=== PATIENT | male | born 1940 | race Caucasian/White ===

== ENCOUNTER → 2016-11-02 | Outpatient (CLI) | payer MEDICARE, BC ==
[~2016-11-02] MED LIST: ASPI81TA85 PO; FISH1000 PO; HYDR12.55 PO; JANU100T PO; LISI-538 PO; ROSU10TA PO; VITA200016 PO
--- NOTE | 2016-11-02 11:26 | REP ---
Clinical: Annual health physical . Comparison: 08/16/2015 . Technique: PA and lateral. Findings: The mediastinum and cardiac silhouette are normal. The lung rogers are clear and without acute consolidation, effusion, or pneumothorax. The skeletal structures are intact and normal. Impression: 1. No acute cardiopulmonary process. Signed by Carlos Dave MD 11/02/2016 11:18 A
[2016-11-02 11:27] LABS: MEAN CORPUSCULAR HEMOGLOBIN 29.8 pg (27.0-33.0); MEAN CORPUSCULAR HGB CONC 34.4 g/dl (32.0-36.5); MEAN CORPUSCULAR VOLUME 86.8 fl (80.0-96.0); RED CELL DISTRIBUTION WIDTH 12.9 % (11.5-14.5)
[2016-11-02 11:51] LABS: ALBUMIN 3.9 GM/DL (3.2-5.2); ALBUMIN/GLOBULIN RATIO 1.18 (1.00-1.93); ALKALINE PHOSPHATASE 49 U/L (45-117); ALT/SGPT 26 U/L (12-78); ANION GAP 10 MEQ/L (8-16); AST/SGOT 22 U/L (15-37); BILIRUBIN,TOTAL 1.3 MG/DL (0.2-1.0); BLOOD UREA NITROGEN 15 MG/DL (7-18); CALCIUM LEVEL 8.7 MG/DL (8.8-10.2); CARBON DIOXIDE LEVEL 29 MEQ/L (21-32); CHLORIDE LEVEL 100 MEQ/L (98-107); CHOLESTEROL LEVEL 161 MG/DL (<200); CREATININE FOR GFR 1.05 MG/DL (0.70-1.30); GLOMERULAR FILTRATION RATE > 60.0 (>42); GLUCOSE, FASTING 131 MG/DL (83-110); POTASSIUM SERUM 4.2 MEQ/L (3.5-5.1); SODIUM LEVEL 139 MEQ/L (136-145); TOTAL PROTEIN 7.2 GM/DL (6.4-8.2); TRIGLYCERIDES LEVEL 91 MG/DL (<150)
--- NOTE | 2016-11-02 16:43 | ECGEPIP ---
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 Electronically Signed On 11-02-2016 16:43:13 EST by Mikie Kumar
== END ==
LOC: M LAB 10:45
PROVIDERS: ATTEND Family Medicine
DX: I10 Essential (primary) hypertension (principal); I44.0 Atrioventricular block, first degree; I45.9 Conduction disorder, unspecified; Z79.899 Other long term (current) drug therapy; N39.0 Urinary tract infection, site not specified

== ENCOUNTER → 2016-11-20 | Outpatient (CLI) | payer MEDICARE, BC ==
[~2016-11-20] MED LIST changes: +ISOVUE-370 76% 100ML VIAL (Q9967) As Ordered ONE
--- NOTE | 2016-11-20 13:30 | REP ---
CT UROGRAM: CT ABDOMEN/PELVIS WITHOUT AND WITH IV CONTRAST HISTORY: Hematuria with bladder mass. Question bladder carcinoma. No comparison studies. CT CONTRAST DOSE: 100 mL of Isovue-[address] FINDINGS: Preliminary digital manager technical support radiograph of the abdomen shows an unremarkable bowel gas pattern. The lung bases are clear. There is a sharply circumscribed low-density lesion in the left lobe of the liver, consist with cyst. This measures 1.8 cm in greatest diameter. No other focal liver lesion is appreciated. Spleen is unremarkable. No adrenal lesion is seen on either side. There is a small sliding-type hiatal hernia. The gallbladder and pancreas show no abnormality. There is a large intrarenal calculus occupying the lower pole collecting system of the left kidney. This measures 1.5 cm in greatest transverse dimension. Appears to be 2.5 cm in craniocaudal span. No hydronephrosis is seen. The kidneys enhance symmetrically and are otherwise morphologically intact. Renal artery vascular calcification and abdominal aortic vascular calcification is seen. A normal appendix is noted. There are dystrophic calcifications in the prostate gland. There is some calcific material in the dependent portion of the bladder lumen to the right of midline, consistent with small gravel-like bladder calculi. No bladder mass lesion is seen. Seminal vesicles are unremarkable. There is diverticulosis affecting the sigmoid colon without CT evidence of diverticulitis. No abdominal wall defect is seen. No bony destructive lesion is appreciated. IMPRESSION: 1. Staghorn calculus lower pole left kidney 2.5 cm in greatest diameter. No hydronephrosis. 2. Prostate enlargement with dystrophic prostate calcifications. There is mild thickening diffusely in the bladder wall, and there are gravel-like calculi in the urinary bladder. 3. Vascular calcification. 4. Small hiatal hernia. 5. Left colonic diverticulosis. 6. A 1.8 cm cyst in the left lobe of the liver. Signed by Horacio Peter MD 11/20/2016 03:17 P
== END ==
LOC: M RAD 11:53
PROVIDERS: ATTEND Family Medicine
DX: R31.9 Hematuria, unspecified (principal); N32.89 Other specified disorders of bladder; K44.9 Diaphragmatic hernia without obstruction or gangrene; K57.30 Diverticulosis of large intestine without perforation or abscess without bleeding; K76.89 Other specified diseases of liver; N20.0 Calculus of kidney; N40.0 Benign prostatic hyperplasia without lower urinary tract symptoms
CPT/HCPCS: 74178; Q9967

== ENCOUNTER → 2016-12-12 | Outpatient (REF) | payer MEDICARE, BC ==
[~2016-12-12] MED LIST changes: +CRES10TA32 PO; -ISOVUE-370 76% 100ML VIAL (Q9967) As Ordered ONE; -ROSU10TA PO
[2016-12-12 19:47] LABS: CALCIUM OXALATE CRYSTALS SMALL
== END ==
LOC: M SMT 17:27
PROVIDERS: ATTEND Nurse Practitioner Family
DX: R31.9 Hematuria, unspecified (principal)
CPT/HCPCS: 81001; 87086; 88108; G0463

== ENCOUNTER → 2017-01-16 | Outpatient (CLI) | payer MEDICARE, BC ==
[~2017-01-16] MED LIST changes: +FLOM5CAP PO; +VITA-130 PO
[2017-01-16 09:50] LABS: MEAN CORPUSCULAR HEMOGLOBIN 31.1 pg (27.0-33.0); MEAN CORPUSCULAR HGB CONC 34.9 g/dl (32.0-36.5); MEAN CORPUSCULAR VOLUME 89.2 fl (80.0-96.0); RED CELL DISTRIBUTION WIDTH 13.5 % (11.5-14.5); WHITE BLOOD COUNT 6.6 K/mm3 (4.0-10.0)
[2017-01-16 09:54] LABS: INR 0.95
[2017-01-16 10:20] LABS: ALBUMIN 3.7 GM/DL (3.2-5.2); ALBUMIN/GLOBULIN RATIO 1.06 (1.00-1.93); ALKALINE PHOSPHATASE 50 U/L (45-117); ALT/SGPT 31 U/L (12-78); ANION GAP 7 MEQ/L (8-16); AST/SGOT 20 U/L (15-37); BILIRUBIN,TOTAL 1.2 MG/DL (0.2-1.0); BLOOD UREA NITROGEN 16 MG/DL (7-18); CALCIUM LEVEL 8.5 MG/DL (8.8-10.2); CARBON DIOXIDE LEVEL 29 MEQ/L (21-32); CHLORIDE LEVEL 101 MEQ/L (98-107); CHOLESTEROL LEVEL 128 MG/DL (<200); CREATININE FOR GFR 1.15 MG/DL (0.70-1.30); GLOMERULAR FILTRATION RATE > 60.0 (>42); GLUCOSE, FASTING 134 MG/DL (83-110); POTASSIUM SERUM 4.5 MEQ/L (3.5-5.1); SODIUM LEVEL 137 MEQ/L (136-145); TOTAL PROTEIN 7.2 GM/DL (6.4-8.2); TRIGLYCERIDES LEVEL 49 MG/DL (<150)
== END ==
LOC: M LAB 09:02
PROVIDERS: ATTEND Family Medicine
DX: I10 Essential (primary) hypertension (principal); R53.83 Other fatigue; N40.0 Benign prostatic hyperplasia without lower urinary tract symptoms

== ENCOUNTER → 2017-01-25 | Day surgery (SDC) | payer MEDICARE, BC ==
[~2017-01-25] VITALS: Ht 177.8 cm; Wt 95.3 kg
[~2017-01-25] MED LIST changes: +CONRAY-60 60% 50ML VIAL (Q9961) As Ordered ONE; +FUROSEMIDE 100 MG/10 ML VIAL (J1940) As Ordered ONE; +GLYCOPYRROLATE INJ 0.2 MG/ML 2 ML VIAL As Ordered ONE; +LIDOCAINE 2% INJ 100 MG/5 ML SDV (FOR ANES.) As Ordered ONE; +LR 1,000 ML IV ONE; +LR 1,000 ML IV SCH; +MIDAZOLAM INJ 2 MG/2 ML VIAL (J2250) As Ordered ONE; +NEOSTIGMINE 1MG/ML 5 ML SYRINGE (J2710) As Ordered ONE; +ONDANSETRON 4MG/2ML VIAL (J2405) As Ordered ONE; +ONDANSETRON 4MG/2ML VIAL (J2405) IV PRN; +PERCOCET 5MG/325MG TAB PO PRN; +PROPOFOL 200 MG/20 ML VIAL As Ordered ONE; +ROCURONIUM BROMIDE 50 MG/5 ML VIAL/SYRINGE As Ordered ONE; -VITA-130 PO; +VITA500T PO; +ePHEDrine SULFATE 25 MG/5 ML(5MG/ML) SYRINGE As Ordered ONE; +fentaNYL 100 MCG/2 ML INJECTION (J3010) IV PRN; +fentaNYL 250 MCG/5 ML INJECTION (J3010) As Ordered ONE
--- NOTE | 2017-01-25 09:59 | REP ---
RETROGRADE PYELOGRAM: 01/25/2017. Clinical history: Nephrolithiasis for left ureteral stent placement. Comparison: CT 11/20/2016. Findings: Two images from C-arm fluoroscopy provided to Dr. Estrella of the urology division for left ureteral stent placement. Initial image shows a ureteral stent coiled in the pelvis and lower pole region of the left kidney. The second image shows the proximal to distal course of the stent with the distal coil in the bladder. Fluoroscopy time: 11 seconds. Signed by Michael Fry MD 01/25/2017 02:45 P
[2017-01-25 11:25] VITALS: BP 169/82
--- NOTE | 2017-01-26 11:31 | RO ---
DATE OF PROCEDURE: 01/25/2017 PREPROCEDURE DIAGNOSIS: Left kidney stone, bladder tumor. POSTPROCEDURE DIAGNOSIS: Left kidney stone, bladder tumor. PROCEDURE: Examination under anesthesia, cystoscopy with left ureteroscopy, laser lithotripsy and basket extraction of stone, left retrograde pyelogram with intraoperative interpretation images, left ureteral stent placement, transurethral resection of bladder tumor (less than 2 cm). SURGEON: Dr. Paulino Estrella MICROSTRATEGY ARCHITECT DEVELOPER: None. ANESTHESIA: General. OPERATIVE INDICATIONS: This is a 76-year-old male recently found to have a approximately a 1.5 cm left kidney stone as well as a bladder tumor in office cystoscopy. It was recommended he be brought to the operating room for the above listed procedure. DESCRIPTION OF PROCEDURE: The patient was brought to the operating room where general anesthesia was induced. Prophylactic antibiotics infused. He was placed in the dorsal lithotomy position and a bimanual digital rectal examination under anesthesia was performed. It was negative for palpable bladder masses, but of note, the patient did have what felt to be a nodule in the right side of his prostate occupying less than 50% of the right side of his gland. Next, the patient was then prepped and draped in the usual sterile fashion. A cystoscope was inserted through the urethral meatus and advanced to the bladder. Once within the bladder, a wire was advanced up the left collecting system. A ureteral access sheath was then advanced over the wire of the left collecting system and the wire was secured to the drape to serve as a safety wire. We then up the access sheath with a flexible ureteroscope and within the mid pole ramos, a 1.5 cm stone was seen. The stone was then fragmented in several smaller pieces with 200 micron laser fiber. The larger of the pieces was then removed with a stone basket. The remainder of the stone fragments that were seen were fragmented in even tinier pieces that should be small enough pass. At this point, a retrograde pyelogram was performed and was negative for extravasation. We then reintroduced the uteroscope, along the access sheath and utilized the previously placed wire to advance a #7-Vietnamese x 22-32 cm JJ ureteral stent up into the left collecting system. The wire was then removed and there were adequate curls of the stent in the left renal pelvis and in the bladder. Next, I examined the bladder thoroughly with the cystoscope and the only abnormality seen was an approximately 1 cm papillary tumor on the left lateral bladder just above the level of the ureteral orifice. This tumor was then resected completely using a loop and I made sure to cut deep enough to get through the muscle layer. At this point, I cauterized the base of the area of resection, until there was no bleeding. The tumor specimen was handed off to be sent for pathologic analysis. At this point, I confirmed there were no other abnormalities within the bladder. The bladder was emptied of all fluid and this marked the conclusion of the procedure. The patient was then taken out of the dorsal lithotomy position, awakened from anesthesia and transported to the recovery room in stable condition. ESTIMATED BLOOD LOSS: 0 mm. COMPLICATIONS: None. SPECIMENS: Kidney stone fragments, bladder tumor. PLAN: The patient will followup in the clinic in a few weeks to assess pathology results and any future treatment. Of note, since the patient did have what felt to be a nodule in his prostate, and from review of his records, he had a PSA of 4.5 earlier this year, he might also benefit from a prostate biopsy. This will be discussed at his followup. DENISE
[2017-02-01 14:15] LABS: Uric Acid 93 % (.)
== END | disposition home or self-care (01) ==
LOC: M SDC 06:08
PROVIDERS: ATTEND Urology
DX: N20.0 Calculus of kidney (principal); C67.2 Malignant neoplasm of lateral wall of bladder; I10 Essential (primary) hypertension; E78.5 Hyperlipidemia, unspecified; Z92.3 Personal history of irradiation; Z79.899 Other long term (current) drug therapy; Z79.82 Long term (current) use of aspirin; Z87.891 Personal history of nicotine dependence
CPT/HCPCS: 52234; 52356; 74420; 82360; 88300; 88305; C1726; C1894; C2617; J0690; J1940; J2250; J2405; J2710; J3010; Q9961

== ENCOUNTER → 2017-05-07 | Outpatient (CLI) | payer MEDICARE, BC ==
[~2017-05-07] MED LIST changes: -CONRAY-60 60% 50ML VIAL (Q9961) As Ordered ONE; -FUROSEMIDE 100 MG/10 ML VIAL (J1940) As Ordered ONE; -GLYCOPYRROLATE INJ 0.2 MG/ML 2 ML VIAL As Ordered ONE; -LIDOCAINE 2% INJ 100 MG/5 ML SDV (FOR ANES.) As Ordered ONE; -LR 1,000 ML IV ONE; -LR 1,000 ML IV SCH; -MIDAZOLAM INJ 2 MG/2 ML VIAL (J2250) As Ordered ONE; -NEOSTIGMINE 1MG/ML 5 ML SYRINGE (J2710) As Ordered ONE; -ONDANSETRON 4MG/2ML VIAL (J2405) As Ordered ONE; -ONDANSETRON 4MG/2ML VIAL (J2405) IV PRN; -PERCOCET 5MG/325MG TAB PO PRN; -PROPOFOL 200 MG/20 ML VIAL As Ordered ONE; -ROCURONIUM BROMIDE 50 MG/5 ML VIAL/SYRINGE As Ordered ONE; -ePHEDrine SULFATE 25 MG/5 ML(5MG/ML) SYRINGE As Ordered ONE; -fentaNYL 100 MCG/2 ML INJECTION (J3010) IV PRN; -fentaNYL 250 MCG/5 ML INJECTION (J3010) As Ordered ONE
[2017-05-08 14:14] LABS: PSA % FREE 17.1 % (.); PSA FREE 0.77 ng/mL; PSA TOTAL 4.5 ng/mL (0.0-4.0)
== END ==
LOC: M LAB 09:36
PROVIDERS: ATTEND Urology
DX: R39.89 Other symptoms and signs involving the genitourinary system (principal)

== ENCOUNTER → 2017-05-14 | Outpatient (REF) | payer MEDICARE, BC ==
[2017-05-25 00:08] LABS: Uric Acid 100 % (.)
== END ==
LOC: M SMT 13:01
PROVIDERS: ATTEND Urology
DX: C67.9 Malignant neoplasm of bladder, unspecified (principal); N21.0 Calculus in bladder

== ENCOUNTER → 2017-05-28 | Outpatient (CLI) | payer MEDICARE, BC ==
--- NOTE | 2017-05-28 12:45 | REP ---
Prostate sonography: History: Elevated PSA level. Sonographic findings: Trans rectal prostate sonography demonstrates unremarkable seminal vesicles. Prostate gland is heterogeneously enlarged with calcifications and cystic changes noted. Glandular dimensions are measured at 5.0 x 3.8 x 5.1 cm with a calculated glandular volume of 50.1 ml. There is a 0.9 cm nodule on the right and a 2.0 cm nodule on the right. Transrectal sonographic guidance provided to Dr. Estrella who performed trans rectal ultrasound guided needle biopsy procedure . Signed by Horacio Peter MD 05/28/2017 12:37 P
== END ==
LOC: M SMT PRO 09:23
PROVIDERS: ATTEND Urology
DX: C61 Malignant neoplasm of prostate (principal)
CPT/HCPCS: 55700; 76872; 76942; G0416

== ENCOUNTER → 2017-06-06 | Outpatient (CLI) | payer MEDICARE, BC ==
[2017-06-06 10:48] LABS: ANION GAP 7 MEQ/L (8-16); BLOOD UREA NITROGEN 13 MG/DL (7-18); CALCIUM LEVEL 9.2 MG/DL (8.8-10.2); CARBON DIOXIDE LEVEL 28 MEQ/L (21-32); CHLORIDE LEVEL 102 MEQ/L (98-107); CREATININE FOR GFR 0.96 MG/DL (0.70-1.30); GLOMERULAR FILTRATION RATE > 60.0 (>42); GLUCOSE, FASTING 112 MG/DL (83-110); POTASSIUM SERUM 4.2 MEQ/L (3.5-5.1); SODIUM LEVEL 137 MEQ/L (136-145)
== END ==
LOC: M LAB 09:37
PROVIDERS: ATTEND Urology
DX: C61 Malignant neoplasm of prostate (principal)

== ENCOUNTER → 2017-06-13 | Outpatient (CLI) | payer MEDICARE, BC ==
[~2017-06-13] MED LIST changes: +ISOVUE-370 76% 100ML VIAL (Q9967) As Ordered ONE
--- NOTE | 2017-06-13 10:12 | REP ---
CT PELVIS WITH IV CONTRAST: History: Prostate carcinoma. Comparison study: November 20, 2016. CT contrast dose: 100 ml of Isovue [address] findings: There is no evidence of ascites. Vascular calcification is noted in the aorta and iliac vessels. 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 There is left colonic diverticulosis mild in degree. A normal appendix is seen. Seminal vesicles are unremarkable and symmetric. No pelvic mass or adenopathy is seen. Prostate is somewhat enlarged and contains multiple dystrophic calcifications as before. There is mild diffuse bladder wall thickening. The previously noted gravel like calculi are no longer visible in the bladder lumen. Bone window settings show no bony sclerotic or destructive lesion. No abdominal wall defect is seen. Impression: No mass or adenopathy seen. Prostate enlargement again noted. 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 Signed by Horacio Peter MD 06/13/2017 11:24 A
--- NOTE | 2017-06-13 13:29 | REP ---
Whole body radionuclide bone scan: History: Prostate carcinoma. No comparison bone scan. Technique: 22.0 mCi technetium 99m MDP is injected and standard whole body bone scan imaging is acquired. Scintigraphic findings: There is a normal distribution of skeletal tracer with uptake in bilateral kidneys and in the urinary bladder. There is mild arthritic uptake in both shoulders and in the right manubrial clavicular articulation. Left glenohumeral uptake is more prominent than right but appears to be arthritic. There is no evidence to suggest skeletal metastatic disease. Impression: No scintigraphic evidence to suggest skeletal metastatic disease. Signed by Horacio Peter MD 06/13/2017 05:21 P
== END ==
LOC: M RAD 09:08
PROVIDERS: ATTEND Urology
DX: C61 Malignant neoplasm of prostate (principal)
CPT/HCPCS: 72193; 78306; A9503; Q9967

== ENCOUNTER → 2017-07-16 | Outpatient (CLI) | payer MEDICARE, BC ==
[~2017-07-16] MED LIST changes: -ISOVUE-370 76% 100ML VIAL (Q9967) As Ordered ONE
--- NOTE | 2017-07-16 12:22 | REP ---
TRANSRECTAL PROSTATE SONOGRAPHIC GUIDANCE: History: Prostate CA. Findings: Transrectal ultrasound guidance is provided to Dr. Estrella who performed transrectal ultrasound guided prostate fiducial marker placement procedure. Signed by Horacio Peter MD 07/16/2017 02:10 P
== END ==
LOC: M SMT 09:21
PROVIDERS: ATTEND Urology
DX: C61 Malignant neoplasm of prostate (principal)
CPT/HCPCS: 55876; 76872; A4648

== ENCOUNTER 2017-08-05 11:17 | Outpatient (RCR) | payer MEDICARE, BC | END 2017-08-08 | LOC: M ONCR 11:17 | PROVIDERS: ATTEND Radiology Radiation Oncology | DX: C61 Malignant neoplasm of prostate (principal) ==

== ENCOUNTER → 2017-08-05 | Outpatient (CLI) | payer MEDICARE, BC ==
[2017-08-05 11:12] LABS: MEAN CORPUSCULAR HEMOGLOBIN 29.8 pg (27.0-33.0); MEAN CORPUSCULAR HGB CONC 34.2 g/dl (32.0-36.5); MEAN CORPUSCULAR VOLUME 87.3 fl (80.0-96.0); PLATELET COUNT, AUTOMATED 195 10^3/uL (150-450); RED CELL DISTRIBUTION WIDTH 12.7 % (11.5-14.5); WHITE BLOOD COUNT 6.7 10^3/uL (4.0-10.0)
== END ==
LOC: M RAD 10:16
PROVIDERS: ATTEND Radiology Radiation Oncology
DX: C61 Malignant neoplasm of prostate (principal)

== ENCOUNTER 2017-08-09 14:35 | Outpatient (RCR) | payer MEDICARE, BC | END 2017-09-08 | LOC: M ONCR 14:35 | DX: C61 Malignant neoplasm of prostate (principal) | CPT/HCPCS: 77300 ==

== ENCOUNTER 2017-09-10 11:08 | Outpatient (RCR) | payer MEDICARE, BC | END 2017-10-09 | LOC: M ONCR 11:08 | DX: C61 Malignant neoplasm of prostate (principal) | CPT/HCPCS: 77300 ==

== ENCOUNTER 2017-10-10 11:18 | Outpatient (RCR) | payer MEDICARE, BC | END 2017-11-06 | LOC: M ONCR 11:18 | DX: C61 Malignant neoplasm of prostate (principal) | CPT/HCPCS: 77336 ==

== ENCOUNTER → 2017-11-18 | Outpatient (CLI) | payer MEDICARE, BC ==
[2017-11-18 10:02] LABS: PROSTATIC SPECIFIC AG MONITOR 0.05 NG/ML (< 4.0)
== END ==
LOC: M LAB 08:34
DX: C61 Malignant neoplasm of prostate (principal)
CPT/HCPCS: 84153

== ENCOUNTER → 2017-11-20 | Outpatient (CLI) | payer MEDICARE, BC | LOC: M ONCR 11:37 | DX: C61 Malignant neoplasm of prostate (principal) | CPT/HCPCS: G0463 ==

== ENCOUNTER → 2018-01-07 | Outpatient (REF) | payer MEDICARE, BC | LOC: M SMT 13:28 | DX: C61 Malignant neoplasm of prostate (principal); C67.9 Malignant neoplasm of bladder, unspecified (principal) | CPT/HCPCS: 88108 ==

== ENCOUNTER → 2018-01-09 | Outpatient (CLI) | payer MEDICARE, BC | LOC: M RAD 13:22 | DX: I72.4 Aneurysm of artery of lower extremity (principal) | CPT/HCPCS: 93923 ==

== ENCOUNTER → 2018-02-24 | Outpatient (CLI) | payer MEDICARE, BC ==
[2018-02-24 10:55] LABS: PROSTATIC SPECIFIC AG MONITOR 0.01 NG/ML (< 4.0)
== END ==
LOC: M LAB 09:38
DX: C61 Malignant neoplasm of prostate (principal)
CPT/HCPCS: 84153

== ENCOUNTER → 2018-03-31 | Outpatient (CLI) | payer MEDICARE, BC ==
[2018-03-31 09:11] LABS: HEMATOCRIT 35.3 % (42.0-52.0); HEMOGLOBIN 12.4 g/dl (13.5-17.5); MEAN CORPUSCULAR HEMOGLOBIN 30.3 pg (27.0-33.0); MEAN CORPUSCULAR HGB CONC 35.1 g/dl (32.0-36.5); MEAN CORPUSCULAR VOLUME 86.3 fl (80.0-96.0); PLATELET COUNT, AUTOMATED 200 10^3/uL (150-450); RED BLOOD COUNT 4.09 10^6/uL (4.30-6.10); WHITE BLOOD COUNT 5.1 10^3/uL (4.0-10.0)
[2018-03-31 09:50] LABS: ALBUMIN 3.6 GM/DL (3.2-5.2); ALBUMIN/GLOBULIN RATIO 1.06 (1.00-1.93); ALKALINE PHOSPHATASE 49 U/L (45-117); ALT/SGPT 30 U/L (12-78); ANION GAP 9 MEQ/L (8-16); AST/SGOT 19 U/L (7-37); BILIRUBIN,TOTAL 0.9 MG/DL (0.2-1.0); BLOOD UREA NITROGEN 14 MG/DL (7-18); CALCIUM LEVEL 8.9 MG/DL (8.8-10.2); CARBON DIOXIDE LEVEL 27 MEQ/L (21-32); CHLORIDE LEVEL 105 MEQ/L (98-107); CHOLESTEROL LEVEL 160 MG/DL (<200); CHOLESTEROL RISK RATIO 2.253 (<5); CREATININE FOR GFR 0.93 MG/DL (0.70-1.30); ESTIMATED AVERAGE GLUCOSE 143 MG/DL (60-110); GLOMERULAR FILTRATION RATE > 60.0 (>42); GLUCOSE, FASTING 126 MG/DL (70-100); HDL CHOLESTEROL 71 MG/DL (>40); HEMOGLOBIN A1c 6.6 %; IRON (FE) 88 UG/DL (65-175); LDL CHOLESTEROL 73.4 MG/DL (<100); NON-HDL-C 89 MG/DL; PERCENT SATURATION 29.7 % (19.7-50.0); POTASSIUM SERUM 4.2 MEQ/L (3.5-5.1); SODIUM LEVEL 141 MEQ/L (136-145); TOTAL IRON BINDING CAPACITY 296 UG/DL (250-450); TRIGLYCERIDES LEVEL 78 MG/DL (<150)
== END ==
LOC: M LAB 08:47
DX: I10 Essential (primary) hypertension (principal); E11.9 Type 2 diabetes mellitus without complications
CPT/HCPCS: 83550

== ENCOUNTER → 2018-05-14 | Outpatient (CLI) | payer MEDICARE, BC ==
[2018-05-14 12:11] LABS: PROSTATIC SPECIFIC AG MONITOR < 0.01 NG/ML (< 4.0)
== END ==
LOC: M LAB 11:10
DX: C61 Malignant neoplasm of prostate (principal)
CPT/HCPCS: 36415

== ENCOUNTER → 2018-05-21 | Outpatient (CLI) | payer MEDICARE, BC | LOC: M ONCR 11:15 | DX: C61 Malignant neoplasm of prostate (principal) | CPT/HCPCS: G0463 ==

== ENCOUNTER → 2018-07-24 | Outpatient (CLI) | payer MEDICARE, BC ==
[2018-07-24 12:01] LABS: PROSTATIC SPECIFIC AG MONITOR < 0.0 NG/ML (< 4.0)
== END ==
LOC: M LAB 10:51
DX: C61 Malignant neoplasm of prostate (principal)
CPT/HCPCS: 84153

== ENCOUNTER → 2018-08-06 | Outpatient (REF) | payer MEDICARE, BC | LOC: M SMT 17:05 | DX: C67.9 Malignant neoplasm of bladder, unspecified (principal) | CPT/HCPCS: 88108 ==

== ENCOUNTER → 2018-08-07 | Outpatient (CLI) | payer MEDICARE, BC | LOC: M RAD 13:30 | DX: I72.4 Aneurysm of artery of lower extremity (principal) | CPT/HCPCS: 93926 ==

== ENCOUNTER → 2018-11-12 | Outpatient (CLI) | payer MEDICARE, BC ==
[~2018-11-12] MED LIST changes: +FLOM0.4C39 PO; -FLOM5CAP PO
== END ==
LOC: M LAB 11:06
PROVIDERS: ATTEND Radiology Radiation Oncology
DX: C61 Malignant neoplasm of prostate (principal)

== ENCOUNTER → 2018-12-03 | Outpatient (CLI) | payer MEDICARE, BC ==
--- NOTE | 2018-12-04 14:34 | RADONC ---
RADIATION ONCOLOGY FOLLOWUP NOTE DATE: 12/03/2018 CHART NUMBER: [id number] DIAGNOSIS: Prostate cancer. STAGE: II B, L7dL5W3. ECOG PERFORMANCE STATUS: Zero. FOLLOWUP NOTE: Mr. 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 The patient presents today reporting that he is doing quite well with no complaints at this time related to his radiation therapy or disease. He has no urinary or bowel difficulties. No bone pain. REVIEW OF SYSTEMS: The patient's review of systems is noncontributory. Denies nausea, vomiting, fevers, chills, night sweats, diplopia, headaches, anxiety or depression, anorexia, weight loss, visual disturbances, chest pain, urinary or bowel difficulties, bone pain, or neurological problems. PHYSICAL EXAMINATION: The patient is a well-developed, well-nourished male in no acute distress. HEENT exam is normocephalic, atraumatic. Extraocular movements are intact. There is no palpable cervical, supraclavicular, infraclavicular, axillary, or inguinal lymphadenopathy present. Lungs are clear to auscultation and percussion. Heart has a regular rate and rhythm. Abdomen is benign with no hepatosplenomegaly, masses, or tenderness. Rectal examination reveals a normal anal sphincter tone. His prostate is smooth with no evidence of nodularity. Skeletal examination reveals no tenderness to pressure or percussion of the bony skeleton. Extremities reveal no clubbing, cyanosis, or edema. Neurologic exam is grossly intact, as is the remainder of the physical examination. ASSESSMENT: The patient is clinically MACRINA at this time and will be seen by us again in 6 months for further followup. He will also continue to be followed by his other physicians as well. cc: MD Abdelrahman Hodges MD
== END ==
LOC: M ONCR 11:07
PROVIDERS: ATTEND Radiology Radiation Oncology
DX: C61 Malignant neoplasm of prostate (principal)

== ENCOUNTER → 2019-01-30 | Outpatient (CLI) | payer MEDICARE, BC ==
[~2019-01-30] MED LIST changes: +CRES10TA PO; -CRES10TA32 PO
== END ==
LOC: M LAB 09:17
PROVIDERS: ATTEND Urology
DX: C61 Malignant neoplasm of prostate (principal)

== ENCOUNTER → 2019-02-06 | Outpatient (REF) | payer MEDICARE, BC | LOC: M SMT 16:57 | PROVIDERS: ATTEND Urology | DX: C67.9 Malignant neoplasm of bladder, unspecified (principal) | CPT/HCPCS: 52000; 88108; 96402; J9217 ==

== ENCOUNTER → 2019-02-26 | Outpatient (CLI) | payer MEDICARE, BC ==
--- NOTE | 2019-02-26 16:58 | REP ---
Lumbar spine series: Five views. History: Low back pain. Pain extending down both lower extremities. Comparison radiographs April 24, 2012. Lumbar spine findings: Lumbar vertebral body heights are preserved. Alignment is normal. There is diffuse degenerative disc disease throughout the lumbar spine. Narrowing and sclerosis are a little more pronounced at the L4-5 and L3-4 levels when compared to the 2012 study. Otherwise essentially unchanged. Vascular calcification is noted in a normal caliber aorta. No fracture or collapse is seen. No bony destructive lesion is seen. Pedicles and posterior elements are intact. There is facet hypertrophy and sclerosis bilaterally at L5-S1, L4-5, and to some degree at L3-4. Sacrum and SI joints are intact. Psoas margins are symmetric. Impression: Fairly advanced degenerative spondylosis changes. Progressive disc narrowing and sclerosis at L 04/05 and L 03/04. No acute bony abnormality. Electronically Signed by Horacio Peter MD 02/26/2019 04:50 P
--- NOTE | 2019-02-26 17:30 | REP ---
RIGHT HIP, TWO VIEWS: Two views of the right hip are performed. There is no acute fracture or dislocation. There are mild degenerative changes at the hip joint with mild joint space narrowing, subchondral sclerosis and spurring. Vascular calcifications are seen in the medial soft tissues. Metallic clips are seen in the lower pelvis. IMPRESSION: Mild degenerative changes. Electronically Signed by Julio Cesar Evangelista MD 02/27/2019 09:21 A
== END ==
LOC: M RAD 14:42
PROVIDERS: ATTEND Family Medicine
DX: M16.11 Unilateral primary osteoarthritis, right hip (principal); M47.897 Other spondylosis, lumbosacral region; M54.30 Sciatica, unspecified side

== ENCOUNTER → 2019-02-26 | Outpatient (CLI) | payer MEDICARE, BC ==
--- NOTE | 2019-02-26 16:07 | REP ---
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 Comparison study August 07, 2018. Findings: The ankle brachial index could not be exit established on the left due to noncompressible vessels. The known common femoral artery aneurysm is again seen measuring 2.2 cm in anteroposterior by two point 5 cm right to left by 2.7 cm cranial caudal. There is atherosclerotic plaquing seen moderate in degree from the left lower extremity. There are multiple stenoses observed in the left common femoral artery just above the aneurysm, in the left distal superficial femoral artery, and in the left distal posterior tibial artery. Velocity chart left carotid: CF A 91/161 cm/S Profunda 84 Proximal SFA 151 Mid SFA 106 Distal SFA 219 Popliteal 93 Proximal AT A 90 Tibioperoneal trunk 52 Proximal SOLE BLACKER 50 Distal SOLE BLACKER 47/103 Distal AT A 41 Electronically Signed by Horacio Peter MD 02/26/2019 03:58 P
== END ==
LOC: M RAD 14:38
PROVIDERS: ATTEND Surgery Vascular Surgery
DX: I72.4 Aneurysm of artery of lower extremity (principal); F17.211 Nicotine dependence, cigarettes, in remission; M16.11 Unilateral primary osteoarthritis, right hip; M47.897 Other spondylosis, lumbosacral region; M54.30 Sciatica, unspecified side

== ENCOUNTER → 2019-05-13 | Outpatient (CLI) | payer MEDICARE, BC | LOC: M LAB 10:38 | PROVIDERS: ATTEND Radiology Radiation Oncology | DX: C61 Malignant neoplasm of prostate (principal) ==

== ENCOUNTER → 2019-05-20 | Outpatient (CLI) | payer MEDICARE, BC ==
--- NOTE | 2019-05-21 15:19 | RADONC ---
RADIATION ONCOLOGY FOLLOWUP NOTE: DATE: 05/20/2019 CHART NUMBER: [id number] DIAGNOSIS: Prostate cancer. STAGE: II B, T2b N0 M0 ECOG PERFORMANCE STATUS: 0 Mr. Carrillo is a pleasant 79-year-old man with a diagnosis of a stage II B, T2b N0 M0, poorly differentiated adenocarcinoma of the prostate Ondina 8 (4+ 4). He presents today for followup visit after having completed external beam radiotherapy on 10/25/2017. Since this time he has been doing fairly well and denies any nausea, vomiting, diarrhea, dysuria, hematuria or blood per rectum. He is being followed very carefully by Dr. Estrella. He also denies any headaches, weight loss, anxiety, depression, visual disturbance, chest pain, urinary or bowel problems, bone pain or neurologic issues. EXAMINATION FINDINGS: The skin within the irradiated volume looks normal. There is no palpable peripheral lymphadenopathy. Lungs: Clear. Heart: Regular without murmurs. Abdomen: Without evidence of hepatomegaly, masses, deep abdominal tenderness. Extremities: Without cyanosis, clubbing or edema. Neurologic: Examination grossly physiologic. PSA dated 05/13/2019 less than a 0.01 ng/mL. The patient had requested for us to deferred rectal examination in light of his very low PSA results. IMPRESSION: Clinically NAD. PLAN: Return to clinic in approximately 1 year or p.r.n. and he was advised to return to his referring physicians as per their directions and instructions. cc: MD Abdelrahman Hodges MD
== END ==
LOC: M ONCR 11:28
PROVIDERS: ATTEND Radiology Radiation Oncology
DX: C61 Malignant neoplasm of prostate (principal)

== ENCOUNTER → 2019-09-07 | Outpatient (CLI) | payer MEDICARE, BC ==
--- NOTE | 2019-09-07 15:38 | REP ---
Left lower extremity arterial Doppler ultrasound: History: A known aneurysm left common femoral artery. Comparison is made with prior sonography and CT study of the pelvis from June 13, 2017. Sonographic findings: The known left common femoral artery aneurysm is seen measuring 2.3 x 3.0 x 2.2 cm. This felt to be unchanged in diameter and length from prior studies. There is atherosclerotic plaquing in the left common femoral and superficial femoral arteries as before. Mild stenosis is seen in the left distal superficial femoral artery. Ankle brachial index could not be accomplished on the left due to noncompressible vessels. Left lower extremity arterial Doppler velocity chart: Left CF A 83/122 Profunda 71 Proximal SFA 176 Mid SFA 80 Distal SFA 103/143 Popliteal 74 Proximal AT A 76 Proximal HOTEL CUSTODIAN 29 Distal HOTEL CUSTODIAN 64 Distal AT A 94 Electronically Signed by Horacio Peter MD 09/07/2019 03:30 P
== END ==
LOC: M RAD 12:39
PROVIDERS: ATTEND Physician Assistant
DX: I72.4 Aneurysm of artery of lower extremity (principal)

== ENCOUNTER → 2020-02-08 | Outpatient (REF) | payer MEDICARE, BC ==
[~2020-02-08] MED LIST changes: +VITA-243 PO; -VITA500T PO
== END ==
LOC: M SMT 17:47
PROVIDERS: ATTEND Urology
DX: C67.9 Malignant neoplasm of bladder, unspecified (principal)

== ENCOUNTER → 2020-02-09 | Outpatient (CLI) | payer MEDICARE, BC | LOC: M LAB 13:10 | PROVIDERS: ATTEND Urology | DX: C61 Malignant neoplasm of prostate (principal) ==

== ENCOUNTER → 2020-06-09 | Outpatient (CLI) | payer MEDICARE, BC ==
[~2020-06-09] MED LIST changes: -ASPI81TA85 PO; +ASPI81TA86 PO
--- NOTE | 2020-06-15 13:46 | REP ---
UNILATERAL LEFT LOWER EXTREMITY ARTERIAL DOPPLER ULTRASOUND HISTORY: Known left common femoral artery aneurysm. COMPARISON: Sonography 09/07/2019. FINDINGS: Ankle brachial index could not be achieved due to noncompressible vessels. The known left common femoral artery aneurysm is again seen essentially unchanged measuring 3.1 x 2.2 x 1.9 cm today. There is a 2:1 velocity stenosis observed in the left common femoral artery on Doppler and a 1.6:1 stenosis in the left superficial femoral artery. [id number] plaquing is seen throughout. Question minimal stenosis in the posterior tibial artery on the left. LEFT LOWER EXTREMITY ARTERIAL VELOCITY CHART LEFT PSV (cm/s) PROFESSIONAL FEE CODER 79 Profunda 36 Proximal SFA 98 Mid SFA 94 Distal SFA 153 Popliteal 76 Proximal JUSTIN 36 Tibioperoneal trunk 57 Proximal MGMT SPECIALIST 27 Distal MGMT SPECIALIST 59 Distal JUSTIN 40 MTDD
== END ==
LOC: M RAD 10:28
PROVIDERS: ATTEND Physician Assistant
DX: I72.4 Aneurysm of artery of lower extremity (principal)

== ENCOUNTER → 2020-08-11 | Outpatient (CLI) | payer MEDICARE, BC | LOC: M LAB 10:18 | PROVIDERS: ATTEND Urology | DX: C61 Malignant neoplasm of prostate (principal) ==

== ENCOUNTER → 2020-11-30 | Outpatient (CLI) | payer MEDICARE, BC ==
[~2020-11-30] MED LIST changes: -LISI-538 PO; +LISI20TA33 PO
[2020-11-30 10:17] LABS: HEMATOCRIT 39.1 % (42.0-52.0); MEAN CORPUSCULAR HEMOGLOBIN 29.1 pg (27.0-33.0); MEAN CORPUSCULAR HGB CONC 33.2 g/dl (32.0-36.5); MEAN CORPUSCULAR VOLUME 87.5 fl (80.0-96.0); PLATELET COUNT, AUTOMATED 214 10^3/uL (150-450); RED BLOOD COUNT 4.47 10^6/uL (4.30-6.10); WHITE BLOOD COUNT 7.1 10^3/uL (4.0-10.0)
[2020-11-30 11:03] LABS: ALBUMIN 3.9 GM/DL (3.2-5.2); ALT/SGPT 31 U/L (12-78); BILIRUBIN,TOTAL 1.2 MG/DL (0.2-1.0); BLOOD UREA NITROGEN 17 MG/DL (7-18); CALCIUM LEVEL 9.3 MG/DL (8.8-10.2); CARBON DIOXIDE LEVEL 26 MEQ/L (21-32); CHLORIDE LEVEL 102 MEQ/L (98-107); CHOLESTEROL LEVEL 144 MG/DL (<200); CHOLESTEROL RISK RATIO 2.285 (<5); CREATININE FOR GFR 0.94 MG/DL (0.70-1.30); GLOMERULAR FILTRATION RATE > 60.0 (>35); GLUCOSE, FASTING 132 MG/DL (70-100); HDL CHOLESTEROL 63 MG/DL (>40); LDL CHOLESTEROL 66 MG/DL (<100); NON-HDL-C 81 MG/DL; PROSTATIC SPECIFIC AG MONITOR 0.15 NG/ML (< 4.00); SODIUM LEVEL 138 MEQ/L (136-145); TESTOSTERONE 239 NG/DL (241-827); TOTAL PROTEIN 7.2 GM/DL (6.4-8.2); TRIGLYCERIDES LEVEL 77 MG/DL (<150)
[2020-11-30 11:17] LABS: HEMOGLOBIN A1c 6.8 %
--- NOTE | 2020-11-30 12:40 | REP ---
INDICATION: HTN,DM,FATIGUE / LABS . COMPARISON: 11/02/2016. TECHNIQUE: Upright PA and lateral chest. FINDINGS: The lung rogers are clear. Cardiac size is normal. The srinivasan, mediastinum and skeletal structures are unremarkable. IMPRESSION: Essentially negative PA and lateral chest There is no interval change. <Electronically signed by Julio Cesar Roche > 11/30/20 [id number]
--- NOTE | 2020-12-01 09:16 | ECGEPIP ---
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
== END ==
LOC: M LAB 09:47
PROVIDERS: ATTEND Family Medicine
DX: I10 Essential (primary) hypertension (principal); E11.9 Type 2 diabetes mellitus without complications; R53.83 Other fatigue; I48.91 Unspecified atrial fibrillation; Z12.5 Encounter for screening for malignant neoplasm of prostate

== ENCOUNTER → 2021-02-03 | Outpatient (CLI) | payer MEDICARE, BC | LOC: M LAB 11:20 | PROVIDERS: ATTEND Urology | DX: C61 Malignant neoplasm of prostate (principal) ==

== ENCOUNTER → 2021-02-13 | Outpatient (REF) | payer MEDICARE, BC | LOC: M SMT 13:07 | PROVIDERS: ATTEND Urology | DX: C67.9 Malignant neoplasm of bladder, unspecified (principal) ==

== ENCOUNTER → 2021-08-09 | Outpatient (CLI) | payer MEDICARE, BC | LOC: M LAB 11:14 | PROVIDERS: ATTEND Urology | DX: C61 Malignant neoplasm of prostate (principal) ==

== ENCOUNTER → 2022-01-16 | Outpatient (CLI) | payer MEDICARE, BC ==
[2022-01-16 10:46] LABS: HEMATOCRIT 39.9 % (42.0-52.0); HEMOGLOBIN 13.4 g/dl (13.5-17.5); MEAN CORPUSCULAR HEMOGLOBIN 29.4 pg (27.0-33.0); MEAN CORPUSCULAR HGB CONC 33.6 g/dl (32.0-36.5); MEAN CORPUSCULAR VOLUME 87.5 fl (80.0-96.0); PLATELET COUNT, AUTOMATED 207 10^3/uL (150-450); RED BLOOD COUNT 4.56 10^6/uL (4.30-6.10); WHITE BLOOD COUNT 6.9 10^3/uL (4.0-10.0)
[2022-01-16 11:25] LABS: ALBUMIN 3.8 GM/DL (3.2-5.2); ALT/SGPT 27 U/L (12-78); BILIRUBIN,TOTAL 1.3 MG/DL (0.2-1.0); BLOOD UREA NITROGEN 17 MG/DL (7-18); CALCIUM LEVEL 9.7 MG/DL (8.8-10.2); CARBON DIOXIDE LEVEL 28 MEQ/L (21-32); CHLORIDE LEVEL 105 MEQ/L (98-107); CHOLESTEROL LEVEL 139 MG/DL (<200); CHOLESTEROL RISK RATIO 2.241 (<5); CREATININE FOR GFR 1.04 MG/DL (0.70-1.30); GLOMERULAR FILTRATION RATE > 60.0 (>35); GLUCOSE, FASTING 141 MG/DL (70-100); HDL CHOLESTEROL 62 MG/DL (>40); LDL CHOLESTEROL 67 MG/DL (<100); NON-HDL-C 77 MG/DL; POTASSIUM SERUM 4.8 MEQ/L (3.5-5.1); PROSTATIC SPECIFIC AG MONITOR 0.35 NG/ML (< 4.00); SODIUM LEVEL 139 MEQ/L (136-145); TOTAL PROTEIN 7.3 GM/DL (6.4-8.2); TRIGLYCERIDES LEVEL 51 MG/DL (<150)
[2022-01-16 11:26] LABS: TESTOSTERONE 398 NG/DL (241-827)
[2022-01-16 11:39] LABS: HEMOGLOBIN A1c 6.7 %
== END ==
LOC: M LAB 09:45
PROVIDERS: ATTEND Family Medicine
DX: I10 Essential (primary) hypertension (principal); E11.9 Type 2 diabetes mellitus without complications; E03.9 Hypothyroidism, unspecified

== ENCOUNTER → 2022-02-20 | Outpatient (CLI) | payer MEDICARE, BC | LOC: M LAB 08:10 | PROVIDERS: ATTEND Urology | DX: C61 Malignant neoplasm of prostate (principal) ==

== ENCOUNTER → 2022-04-09 | Outpatient (REF) | payer MEDICARE, BC | LOC: M SMT 10:31 | PROVIDERS: ATTEND Urology | DX: C67.9 Malignant neoplasm of bladder, unspecified (principal) ==

== ENCOUNTER → 2022-10-15 | Outpatient (CLI) | payer MEDICARE, BC | LOC: M LAB 10:09 | PROVIDERS: ATTEND Urology | DX: C61 Malignant neoplasm of prostate (principal) ==

== ENCOUNTER → 2023-03-26 | Outpatient (CLI) | payer MEDICARE, BC | LOC: M LAB 10:42 | PROVIDERS: ATTEND Urology | DX: C61 Malignant neoplasm of prostate (principal) ==

== ENCOUNTER → 2023-03-26 | Outpatient (CLI) | payer MEDICARE, BC ==
[2023-03-26 13:07] LABS: HEMATOCRIT 41.1 % (42.0-52.0); HEMOGLOBIN 13.7 g/dl (13.5-17.5); MEAN CORPUSCULAR HEMOGLOBIN 29.4 pg (27.0-33.0); MEAN CORPUSCULAR HGB CONC 33.3 g/dl (32.0-36.5); MEAN CORPUSCULAR VOLUME 88.2 fl (80.0-96.0); PLATELET COUNT, AUTOMATED 215 10^3/uL (150-450); RED BLOOD COUNT 4.66 10^6/uL (4.30-6.10); WHITE BLOOD COUNT 6.7 10^3/uL (4.0-10.0)
[2023-03-26 13:23] LABS: HEMOGLOBIN A1c 6.3 % (4.0-6.0)
[2023-03-26 13:30] LABS: ALBUMIN 3.9 G/DL (3.2-5.2); ALKALINE PHOSPHATASE 60 U/L (46-116); ALT/SGPT 27 U/L (7.0-40); AST/SGOT 18 U/L (<34); BILIRUBIN,TOTAL 1.8 MG/DL (0.3-1.2); BLOOD UREA NITROGEN 23 MG/DL (9-23); CALCIUM LEVEL 9.1 MG/DL (8.3-10.6); CARBON DIOXIDE LEVEL 26 MMOL/L (20-31); CHLORIDE LEVEL 102 MMOL/L (98-107); CHOLESTEROL LEVEL 139 MG/DL (<200); CHOLESTEROL RISK RATIO 2.02 (<5); CREATININE FOR GFR 0.83 MG/DL (0.70-1.30); GLOMERULAR FILTRATION RATE > 60.0 (>35); GLUCOSE, FASTING 117 MG/DL (74-106); HDL CHOLESTEROL 68.8 MG/DL (>40); LDL CHOLESTEROL 55.2 MG/DL (<100); NON-HDL-C 70.2 MG/DL; POTASSIUM SERUM 3.8 MMOL/L (3.5-5.1); SODIUM LEVEL 134 MMOL/L (136-145); TESTOSTERONE 405 NG/DL (241-827); THYROID STIMULATING HORMONE 1.527 uIU/ML (0.55-4.78); TOTAL PROTEIN 7.2 G/DL (5.7-8.2); TRIGLYCERIDES LEVEL 75 MG/DL (<150)
== END ==
LOC: M RAD 10:45
PROVIDERS: ATTEND Family Medicine
DX: I10 Essential (primary) hypertension (principal); R53.83 Other fatigue; E03.9 Hypothyroidism, unspecified

== ENCOUNTER → 2023-04-15 | Outpatient (REF) | payer MEDICARE, BC | LOC: M SMT 13:03 | PROVIDERS: ATTEND Urology | DX: Z85.51 Personal history of malignant neoplasm of bladder (principal) ==

== ENCOUNTER → 2023-05-15 | Outpatient (CLI) | payer MEDICARE, BC ==
[2023-05-15 10:05] LABS: HEMATOCRIT 39.9 % (42.0-52.0); HEMOGLOBIN 13.4 g/dl (13.5-17.5); MEAN CORPUSCULAR HEMOGLOBIN 29.6 pg (27.0-33.0); MEAN CORPUSCULAR HGB CONC 33.6 g/dl (32.0-36.5); MEAN CORPUSCULAR VOLUME 88.1 fl (80.0-96.0); PLATELET COUNT, AUTOMATED 182 10^3/uL (150-450); RED BLOOD COUNT 4.53 10^6/uL (4.30-6.10); WHITE BLOOD COUNT 6.9 10^3/uL (4.0-10.0)
[2023-05-15 10:17] LABS: INR 1.72; PROTHROMBIN TIME 19.7 SECONDS (12.5-14.5)
[2023-05-15 10:18] LABS: PARTIAL THROMBOPLASTIN TIME 41.3 SECONDS (24.8-34.2)
[2023-05-15 10:34] LABS: BLOOD UREA NITROGEN 18 MG/DL (9-23); CALCIUM LEVEL 8.8 MG/DL (8.3-10.6); CARBON DIOXIDE LEVEL 27 MMOL/L (20-31); CHLORIDE LEVEL 104 MMOL/L (98-107); CREATININE FOR GFR 0.89 MG/DL (0.70-1.30); GLOMERULAR FILTRATION RATE > 60.0 (>35); GLUCOSE, FASTING 130 MG/DL (74-106); SODIUM LEVEL 138 MMOL/L (136-145)
== END ==
LOC: M LAB 09:36
PROVIDERS: ATTEND Urology
DX: Z01.818 Encounter for other preprocedural examination (principal); C67.9 Malignant neoplasm of bladder, unspecified

== ENCOUNTER → 2023-05-28 | Outpatient (REF) | payer MEDICARE, BC ==
[~2023-05-28] MED LIST changes: +AMLO1TAB24 PO; +ASPI81TA27 PO; +OMEG10002 PO; +THERTAB52 PO; +VITA100093 PO; +XARE20TA PO
== END ==
LOC: M SMT 14:20
PROVIDERS: ATTEND Urology
DX: Z01.818 Encounter for other preprocedural examination (principal); C67.9 Malignant neoplasm of bladder, unspecified; N39.0 Urinary tract infection, site not specified

== ENCOUNTER 2023-06-07 06:33 | Day surgery (SDC) | payer MEDICARE, BC ==
[~2023-06-07] VITALS: Ht 175.3 cm; Wt 90.7 kg
[~2023-06-07 06:33] MED LIST changes: +ceFAZolin SOD 2 GM in IV 1 EA IV ONE; +mitoMYcin 40MG VIAL *UROLOGY INTRAVESIC ONE
[2023-06-07] MEDS ORDERED: LR 1,000 ML IV SCH ×2 (07:15→09:25)
[2023-06-07] MEDS ORDERED: MIDAZOLAM INJ 2MG/2ML VIAL As Ordered ONE (07:48)
[2023-06-07] MEDS ORDERED: LIDOCAINE 2% 100MG/5ML SDV (FOR ANES.) As Ordered ONE (07:48)
[2023-06-07] MEDS ORDERED: propofoL 200 MG/20 ML VIAL As Ordered ONE (07:48)
[2023-06-07] MEDS ORDERED: fentaNYL 100 MCG/2 ML INJECTION As Ordered ONE (07:48)
[2023-06-07] MEDS ORDERED: ROCURONIUM BROMIDE 50MG/5ML VIAL As Ordered ONE (08:12)
[2023-06-07] MEDS ORDERED: ONDANSETRON 4MG 2ML VIAL IV PRN (09:25)
[2023-06-07] MEDS ORDERED: oxyCODONE 5MG TAB PO PRN (09:25)
[2023-06-07] MEDS ORDERED: fentaNYL 100 MCG/2 ML INJECTION IV PRN (09:25)
[2023-06-07] MEDS ORDERED: HYDROMORPHONE HCL 0.5 MG/ 0.5 ML SYRINGE IV PRN (09:25)
[2023-06-07] MEDS ORDERED: OXYB5TAB11 PO (09:47)
[2023-06-07 11:55] VITALS: BP 164/81; TEMP 97.4; O2SAT 98
== END 2023-06-07 12:10 | disposition home or self-care (01) ==
LOC: M SDC 06:33
PROVIDERS: ATTEND Urology
DX: C67.8 Malignant neoplasm of overlapping sites of bladder (principal); I48.91 Unspecified atrial fibrillation; I10 Essential (primary) hypertension; E11.9 Type 2 diabetes mellitus without complications; Z79.899 Other long term (current) drug therapy; Z85.46 Personal history of malignant neoplasm of prostate; Z92.3 Personal history of irradiation; Z79.82 Long term (current) use of aspirin
CPT/HCPCS: 51720; 52235; 88307; J0690; J2250; J3010; J9280

== ENCOUNTER → 2023-09-30 | Outpatient (REF) | payer MEDICARE, BC ==
[~2023-09-30] MED LIST changes: +OXYB5TAB11 PO; -ceFAZolin SOD 2 GM in IV 1 EA IV ONE; -mitoMYcin 40MG VIAL *UROLOGY INTRAVESIC ONE
== END ==
LOC: M SMT 12:33
PROVIDERS: ATTEND Urology
DX: C67.9 Malignant neoplasm of bladder, unspecified (principal)

== ENCOUNTER → 2023-10-18 | Outpatient (CLI) | payer MEDICARE, BC | LOC: M LAB 10:18 | PROVIDERS: ATTEND Urology | DX: Z85.46 Personal history of malignant neoplasm of prostate (principal) ==

== ENCOUNTER → 2023-12-24 | Outpatient (CLI) | payer MEDICARE ==
[~2023-12-24] MED LIST changes: -OXYB5TAB11 PO; +OXYB5TAB14 PO
[2023-12-24 10:12] LABS: HEMATOCRIT 38.2 % (42.0-52.0); HEMOGLOBIN 12.6 g/dl (13.5-17.5); MEAN CORPUSCULAR HEMOGLOBIN 29.7 pg (27.0-33.0); MEAN CORPUSCULAR VOLUME 90.1 fl (80.0-96.0); PLATELET COUNT, AUTOMATED 210 10^3/uL (150-450); RED BLOOD COUNT 4.24 10^6/uL (4.30-6.10)
[2023-12-24 10:17] LABS: HEMOGLOBIN A1c 6.1 % (4.0-6.0)
[2023-12-24 10:31] LABS: ALBUMIN 3.5 G/DL (3.2-5.2); ALKALINE PHOSPHATASE 56 U/L (46-116); ALT/SGPT 27 U/L (7.0-40); AST/SGOT 23 U/L (<34); BILIRUBIN,TOTAL 1.6 MG/DL (0.3-1.2); BLOOD UREA NITROGEN 17 MG/DL (9-23); CALCIUM LEVEL 8.9 MG/DL (8.3-10.6); CARBON DIOXIDE LEVEL 28 MMOL/L (20-31); CHLORIDE LEVEL 104 MMOL/L (98-107); CHOLESTEROL LEVEL 121 MG/DL (<200); CHOLESTEROL RISK RATIO 1.88 (<5); CREATININE FOR GFR 0.99 MG/DL (0.70-1.30); GLOMERULAR FILTRATION RATE > 60.0 (>35); GLUCOSE, FASTING 122 MG/DL (74-106); HDL CHOLESTEROL 64.1 MG/DL (>40); LDL CHOLESTEROL 45.3 MG/DL (<100); NON-HDL-C 56.9 MG/DL; POTASSIUM SERUM 3.9 MMOL/L (3.5-5.1); SODIUM LEVEL 137 MMOL/L (136-145); TOTAL PROTEIN 6.8 G/DL (5.7-8.2); TRIGLYCERIDES LEVEL 58 MG/DL (<150)
[2023-12-24 10:32] LABS: THYROID STIMULATING HORMONE 2.281 uIU/ML (0.55-4.78); TOTAL 25(OH) VITAMIN D 59.5 NG/ML (20.0-100.0)
[2023-12-24 10:33] LABS: TESTOSTERONE 551 NG/DL (241-827)
== END ==
LOC: M LAB 09:17
PROVIDERS: ATTEND Family Medicine
DX: D64.9 Anemia, unspecified (principal); E03.9 Hypothyroidism, unspecified; R53.83 Other fatigue; Z79.899 Other long term (current) drug therapy

== ENCOUNTER → 2024-04-06 | Outpatient (CLI) | payer MEDICARE | LOC: M LAB 09:40 | PROVIDERS: ATTEND Urology | DX: Z85.46 Personal history of malignant neoplasm of prostate (principal) ==

== ENCOUNTER → 2024-04-13 | Outpatient (REF) | payer MEDICARE, BC | LOC: M SMT 12:43 | PROVIDERS: ATTEND Urology | DX: C67.9 Malignant neoplasm of bladder, unspecified (principal) ==

== ENCOUNTER → 2024-10-09 | Outpatient (CLI) | payer MEDICARE, BC | LOC: M LAB 11:41 | PROVIDERS: ATTEND Urology | DX: C61 Malignant neoplasm of prostate (principal) ==

== ENCOUNTER → 2024-10-12 | Outpatient (REF) | payer MEDICARE, BC | LOC: M SMT 10:02 | PROVIDERS: ATTEND Urology | DX: C67.9 Malignant neoplasm of bladder, unspecified (principal) ==

== ENCOUNTER → 2025-04-06 | Outpatient (CLI) | payer MEDICARE, BC ==
[~2025-04-06] MED LIST changes: -FLOM0.4C39 PO; +TAMS-18 PO
== END ==
LOC: M LAB 11:13
PROVIDERS: ATTEND Urology
DX: C61 Malignant neoplasm of prostate (principal)

== ENCOUNTER → 2025-04-12 | Outpatient (REF) | payer MEDICARE, BC | LOC: M SMT 12:45 | PROVIDERS: ATTEND Urology | DX: C67.9 Malignant neoplasm of bladder, unspecified (principal) ==